=== PATIENT | male | born 1940 | race Caucasian/White ===

== ENCOUNTER 2016-05-12 14:53 | Outpatient (RCR) | payer MEDICARE ==
[2011-06-06 11:07] VITALS: BP 130/66
[~2016-05-12 14:53] MED LIST: ADVAIR 250/28 DISKU1 IH; GABAPENTIN300 MG PO; LISINOPRIL2.5 MG PO; NITROGLYCERIN0.4 MG SL; PLAVIX 75MG TAB75 MG PO; SIMVASTATIN40 MG PO; ST. JOSEPH81 M2 PO; TOPROL XL 25MG25 MG PO
== END 2016-05-19 09:11 | disposition home or self-care (01) ==
LOC: PT 14:53
DX: R53.1 Weakness (principal); R26.2 Difficulty in walking, not elsewhere classified

== ENCOUNTER → 2017-10-02 | Outpatient (CLI) | payer MEDICARE ==
[2011-06-06 11:07] VITALS: BP 130/66
[2017-10-02 10:25] LABS: BUN/CREATININE RATIO 16.9 (6.0-26.0); CALCIUM 8.6 mg/dL (8.4-10.2); POTASSIUM 3.9 mmol/L (3.6-5.0); TOTAL BILIRUBIN 0.5 mg/dL (0.2-1.3); TOTAL PROTEIN 7.5 g/dL (6.3-8.2)
== END ==
LOC: LAB 09:18
PROVIDERS: Family Medicine
DX: R94.4 Abnormal results of kidney function studies (principal)

== ENCOUNTER → 2018-01-29 | Outpatient (RCR) | payer MEDICARE ==
[2011-06-06 11:07] VITALS: BP 130/66
== END | disposition home or self-care (01) ==
LOC: PT
DX: R29.898 Other symptoms and signs involving the musculoskeletal system (principal)
CPT/HCPCS: G8978-GP; G8979-GP

== ENCOUNTER → 2018-04-23 | Outpatient (CLI) | payer MEDICARE ==
[2011-06-06 11:07] VITALS: BP 130/66
[2018-04-23 10:28] LABS: EOS # 0.2 (0.04-0.40); EOS % 2.3 % (0.0-4.0); HEMATOCRIT 43.6 % (42.0-52.0); HEMOGLOBIN 14.4 g/dL (13.5-18.0); LYMPH# 2.1 (1.50-4.00); MEAN CELL VOLUME 93 fl (78-100); MEAN CORPUSCULAR HEMOGLOBIN 31 pg (27-31); MEAN CORPUSCULAR HGB CONC 33 g/dL (33-37); MEAN PLATELET VOLUME 10.8 fl (7.4-10.4); MONO # 0.4 (0.20-0.80); NEU # 3.8 (1.40-6.50); PLATELET COUNT 198 K/mm3 (130-400); RED BLOOD COUNT 4.67 M/mm3 (4.20-5.60); RED CELL DISTRIBUTION WIDTH 12.8 % (11.5-14.5); WHITE BLOOD COUNT 6.5 K/mm3 (4.8-10.8)
[2018-04-23 10:39] LABS: ALBUMIN 4.2 g/dL (3.5-5.0); CALCIUM 9.4 mg/dL (8.4-10.2); POTASSIUM 4.2 mmol/L (3.6-5.0); TOTAL BILIRUBIN 0.7 mg/dL (0.2-1.3); TOTAL PROTEIN 6.9 g/dL (6.3-8.2)
== END ==
LOC: LAB 09:52
PROVIDERS: Family Medicine
DX: D64.9 Anemia, unspecified (principal); E78.5 Hyperlipidemia, unspecified; R73.9 Hyperglycemia, unspecified; Z79.899 Other long term (current) drug therapy

== ENCOUNTER 2018-04-29 15:00 | Outpatient (RCR) | payer MEDICARE ==
[2011-06-06 11:07] VITALS: BP 130/66
== END 2018-05-01 | disposition home or self-care (01) ==
LOC: PT
DX: R29.898 Other symptoms and signs involving the musculoskeletal system (principal)
CPT/HCPCS: G8978-GP; G8979-GP

== ENCOUNTER 2018-06-25 12:00 | Inpatient (IN) | payer MEDICARE ==
[~2018-06-25] VITALS: Ht 167.6 cm; Wt 99.0 kg
[~2018-06-25 12:00] MED LIST changes: +LOPRESSOR 225 MG/TAB PO; +ST. JOSEPH ASPI81 M1 PO; -ST. JOSEPH81 M2 PO; -TOPROL XL 25MG25 MG PO
[2018-06-25 13:30] VITALS: BP 149/75
[2018-06-25 13:31] VITALS: BP 149/75
[2018-06-25] MEDS ORDERED: ONE-DAILY MULT1 EAC1 PO (15:20)
[2018-06-25] MEDS ORDERED: NAMENDA XR28 MG PO (15:23)
[2018-06-25] MEDS ORDERED: SINEMET 25-1001 EACH PO (15:23)
[2018-06-25] MEDS ORDERED: ARICEPT23 MG PO (15:24)
[2018-06-25] MEDS ORDERED: PRILOSEC 20MG20 MG PO (15:24)
[2018-06-25] MEDS ORDERED: PRAVASTATIN SOD10 MG PO (15:25)
[2018-06-25 17:29] VITALS: BP 161/85
[2018-06-25 18:24] VITALS: BP 175/84
[2018-06-25 23:00] VITALS: BP 126/73
[2018-06-26] VITALS (7 sets, daily range): BP systolic 135–155; BP diastolic 71–83
[2018-06-26 06:40] LABS: EOS # 0.1 (0.04-0.40); EOS % 0.8 % (0.0-4.0); HEMATOCRIT 35.2 % (42.0-52.0); HEMOGLOBIN 11.8 g/dL (13.5-18.0); LYMPH# 1.7 (1.50-4.00); MEAN CELL VOLUME 92 fl (78-100); MEAN CORPUSCULAR HEMOGLOBIN 31 pg (27-31); MEAN CORPUSCULAR HGB CONC 34 g/dL (33-37); MEAN PLATELET VOLUME 10.2 fl (7.4-10.4); MONO # 1.2 (0.20-0.80); NEU # 7.9 (1.40-6.50); PLATELET COUNT 156 K/mm3 (130-400); RED BLOOD COUNT 3.83 M/mm3 (4.20-5.60); RED CELL DISTRIBUTION WIDTH 12.7 % (11.5-14.5); WHITE BLOOD COUNT 10.9 K/mm3 (4.8-10.8)
[2018-06-26 06:58] LABS: ALBUMIN 3.3 g/dL (3.5-5.0); CALCIUM 8.2 mg/dL (8.4-10.2); POTASSIUM 3.9 mmol/L (3.6-5.0); TOTAL PROTEIN 6.3 g/dL (6.3-8.2)
[2018-06-26 07:03] LABS: PROTHROMBIN TIME 9.8 SECONDS (9.0-12.0)
[2018-06-27 02:32] VITALS: BP 144/77
[2018-06-27 06:17] LABS: EOS # 0.2 (0.04-0.40); HEMATOCRIT 33.6 % (42.0-52.0); HEMOGLOBIN 11.2 g/dL (13.5-18.0); LYMPH# 1.7 (1.50-4.00); MEAN CELL VOLUME 93 fl (78-100); MEAN CORPUSCULAR HEMOGLOBIN 31 pg (27-31); MEAN CORPUSCULAR HGB CONC 33 g/dL (33-37); MONO # 0.9 (0.20-0.80); NEU # 5.4 (1.40-6.50); PLATELET COUNT 161 K/mm3 (130-400); RED BLOOD COUNT 3.62 M/mm3 (4.20-5.60); RED CELL DISTRIBUTION WIDTH 12.6 % (11.5-14.5); WHITE BLOOD COUNT 8.2 K/mm3 (4.8-10.8)
[2018-06-27 06:19] VITALS: BP 124/56
[2018-06-27 06:42] LABS: CALCIUM 7.8 mg/dL (8.4-10.2); POTASSIUM 3.7 mmol/L (3.6-5.0)
[2018-06-27 11:05] VITALS: BP 164/82
[2018-06-27 15:19] VITALS: BP 98/54
[2018-06-27 19:22] VITALS: BP 137/79
[2018-06-27 23:10] VITALS: BP 114/71
[2018-06-28 03:18] VITALS: BP 146/79
[2018-06-28 06:27] VITALS: BP 123/81
[2018-06-28 11:03] VITALS: BP 132/70
== END 2018-06-28 10:39 | disposition swing bed (61) | DRG 65 ==
LOC: MED/SURG 12:00
PROVIDERS: Physician Assistant; ADMIT Nurse Practitioner Primary Care
DX: I63.9 Cerebral infarction, unspecified (principal); G91.2 (Idiopathic) normal pressure hydrocephalus; Z66 Do not resuscitate; E86.0 Dehydration; W18.30XA Fall on same level, unspecified, initial encounter; I25.10 Atherosclerotic heart disease of native coronary artery without angina pectoris; Z95.5 Presence of coronary angioplasty implant and graft; G31.83 Neurocognitive disorder with Lewy bodies; F02.80 Dementia in other diseases classified elsewhere, unspecified severity, without behavioral disturbance, psychotic disturbance, mood disturbance, and anxiety; E78.5 Hyperlipidemia, unspecified; K21.9 Gastro-esophageal reflux disease without esophagitis; Z91.81 History of falling; K59.00 Constipation, unspecified; I65.23 Occlusion and stenosis of bilateral carotid arteries
CPT/HCPCS: C9113; J1650; J7030; Q9967

== ENCOUNTER → 2018-08-05 | Outpatient (CLI) | payer MEDICARE ==
[2018-07-11 06:27] VITALS: BP 146/79
[~2018-08-05] MED LIST changes: +ARICEPT23 MG PO; +NAMENDA XR28 MG PO; +ONE-DAILY MULT1 EAC1 PO; +PRAVASTATIN SOD10 MG PO; +PRILOSEC 20MG20 MG PO; +SINEMET 25-1001 EACH PO; +SYNTHROID0.075 MG PO
[2018-08-05 18:05] LABS: EOS # 0.2 (0.04-0.40); EOS % 2.7 % (0.0-4.0); HEMATOCRIT 46.1 % (42.0-52.0); HEMOGLOBIN 15.3 g/dL (13.5-18.0); LYMPH# 1.5 (1.50-4.00); MEAN CELL VOLUME 90 fl (78-100); MEAN CORPUSCULAR HEMOGLOBIN 30 pg (27-31); MEAN CORPUSCULAR HGB CONC 33 g/dL (33-37); MEAN PLATELET VOLUME 10.7 fl (7.4-10.4); MONO # 0.6 (0.20-0.80); NEU # 4.7 (1.40-6.50); PLATELET COUNT 238 K/mm3 (130-400); RED CELL DISTRIBUTION WIDTH 13.3 % (11.5-14.5)
[2018-08-05 18:21] LABS: ALBUMIN 4.3 g/dL (3.5-5.0); CALCIUM 9.4 mg/dL (8.4-10.2); PARTIAL THROMBOPLASTIN TIME 20.6 SECONDS (21.0-32.0); PROTHROMBIN TIME 9.5 SECONDS (9.0-12.0); TOTAL BILIRUBIN 0.6 mg/dL (0.2-1.3); TOTAL PROTEIN 7.4 g/dL (6.3-8.2)
== END ==
LOC: LAB 16:48
PROVIDERS: Nurse Practitioner
DX: E03.9 Hypothyroidism, unspecified (principal); M79.89 Other specified soft tissue disorders

== ENCOUNTER 2018-08-31 18:53 | Observation (INO) | payer MEDICARE ==
[~2018-08-31] VITALS: Ht 167.6 cm; Wt 92.7 kg
[2018-08-31] MEDS ORDERED: XARELTO20 MG PO (19:03)
[2018-08-31 19:31] LABS: EOS # 0.1 (0.04-0.40); EOS % 0.7 % (0.0-4.0); HEMATOCRIT 37.1 % (42.0-52.0); HEMOGLOBIN 12.3 g/dL (13.5-18.0); LYMPH# 1.4 (1.50-4.00); MEAN CELL VOLUME 93 fl (78-100); MEAN CORPUSCULAR HEMOGLOBIN 31 pg (27-31); MEAN CORPUSCULAR HGB CONC 33 g/dL (33-37); MEAN PLATELET VOLUME 10.6 fl (7.4-10.4); NEU # 7.3 (1.40-6.50); PLATELET COUNT 164 K/mm3 (130-400); RED BLOOD COUNT 3.98 M/mm3 (4.20-5.60); RED CELL DISTRIBUTION WIDTH 13.3 % (11.5-14.5); WHITE BLOOD COUNT 9.8 K/mm3 (4.8-10.8)
[2018-08-31 19:48] LABS: ALBUMIN 3.4 g/dL (3.4-4.8); CALCIUM 9.1 mg/dL (8.8-10.0); POTASSIUM 4.1 mmol/L (3.5-5.1); TOTAL BILIRUBIN 1.1 mg/dL (0.2-1.2); TOTAL PROTEIN 6.3 g/dL (6.2-8.1)
[2018-08-31 22:43] VITALS: BP 125/62
[2018-08-31 23:53] VITALS: BP 125/62
[2018-09-01] MEDS ORDERED: NAMENDA10 MG PO (02:08)
[2018-09-01 03:09] VITALS: BP 126/72
[2018-09-01 06:38] VITALS: BP 135/69
[2018-09-01 11:11] VITALS: BP 110/68
[2018-09-01 14:42] VITALS: BP 127/72
== END 2018-09-01 15:14 | disposition home or self-care (01) ==
LOC: ED 18:53 → MED/SURG 21:42
PROVIDERS: ADMIT Family Medicine
DX: R53.81 Other malaise (principal); G31.83 Neurocognitive disorder with Lewy bodies; F02.80 Dementia in other diseases classified elsewhere, unspecified severity, without behavioral disturbance, psychotic disturbance, mood disturbance, and anxiety; Z86.718 Personal history of other venous thrombosis and embolism; Z79.01 Long term (current) use of anticoagulants
CPT/HCPCS: G0378

== ENCOUNTER → 2018-10-14 | Outpatient (CLI) | payer MEDICARE ==
[~2018-10-14] MED LIST changes: +NAMENDA10 MG PO; +XARELTO20 MG PO
[2018-10-14 09:56] LABS: BASO # 0.2 (0.02-0.10); EOS # 0.2 (0.04-0.40); HEMATOCRIT 44.7 % (42.0-52.0); HEMOGLOBIN 13.8 g/dL (13.5-18.0); MEAN CELL VOLUME 97 fl (78-100); MEAN CORPUSCULAR HEMOGLOBIN 30 pg (27-31); MEAN CORPUSCULAR HGB CONC 31 g/dL (33-37); MONO # 0.7 (0.20-0.80); NEU # 4.9 (1.40-6.50); PLATELET COUNT 193 K/mm3 (130-400); RED BLOOD COUNT 4.61 M/mm3 (4.20-5.60); RED CELL DISTRIBUTION WIDTH 13.5 % (11.5-14.5)
[2018-10-14 10:10] LABS: ALBUMIN 3.7 g/dL (3.4-4.8); POTASSIUM 4.2 mmol/L (3.5-5.1)
[2018-10-14 10:12] LABS: CALCIUM 9.1 mg/dL (8.3-10.5)
[2018-10-14 10:13] LABS: TOTAL PROTEIN 6.9 g/dL (6.2-8.1)
[2018-10-14 10:15] LABS: TOTAL BILIRUBIN 0.4 mg/dL (0.2-1.2)
== END ==
LOC: LAB 09:41
PROVIDERS: Internal Medicine
DX: M25.474 Effusion, right foot (principal); E03.9 Hypothyroidism, unspecified

== ENCOUNTER → 2018-10-28 | Outpatient (CLI) | payer MEDICARE | LOC: LAB 06:25 | DX: R73.03 Prediabetes (principal) ==

== ENCOUNTER → 2018-11-28 | Outpatient (CLI) | payer MEDICARE | LOC: LAB 07:21 | DX: E03.9 Hypothyroidism, unspecified (principal) ==

== ENCOUNTER → 2019-03-06 | Outpatient (CLI) | payer MEDICARE ==
[2019-03-06 09:05] LABS: EOS # 0.2 (0.04-0.40); EOS % 2.6 % (0.0-4.0); HEMATOCRIT 41.5 % (42.0-52.0); HEMOGLOBIN 13.7 g/dL (13.5-18.0); MEAN CELL VOLUME 92 fl (78-100); MEAN CORPUSCULAR HEMOGLOBIN 30 pg (27-31); MEAN CORPUSCULAR HGB CONC 33 g/dL (33-37); MEAN PLATELET VOLUME 10.5 fl (7.4-10.4); MONO # 0.6 (0.20-0.80); NEU # 4.4 (1.40-6.50); PLATELET COUNT 209 K/mm3 (130-400); RED BLOOD COUNT 4.51 M/mm3 (4.20-5.60); RED CELL DISTRIBUTION WIDTH 13.3 % (11.5-14.5); WHITE BLOOD COUNT 7.3 K/mm3 (4.8-10.8)
[2019-03-06 09:08] LABS: ALBUMIN 3.7 g/dL (3.4-4.8); POTASSIUM 4.3 mmol/L (3.5-5.1); SODIUM 141 mmol/L (136-145)
[2019-03-06 09:09] LABS: CALCIUM 9.1 mg/dL (8.3-10.5)
[2019-03-06 09:10] LABS: GLUCOSE 113 mg/dL (75-110); TOTAL PROTEIN 6.7 g/dL (6.2-8.1)
[2019-03-06 09:11] LABS: CARBON DIOXIDE 24 mmol/L (23-31)
[2019-03-06 09:12] LABS: TOTAL BILIRUBIN 0.5 mg/dL (0.2-1.2)
[2019-03-06 09:16] LABS: AST-SGOT 12 U/L (5-34)
[2019-03-06 09:17] LABS: ALT/SGPT < 6 U/L (0-55)
== END ==
LOC: LAB 08:50
PROVIDERS: Internal Medicine
DX: M25.474 Effusion, right foot (principal); E03.9 Hypothyroidism, unspecified; R73.03 Prediabetes

== ENCOUNTER 2019-04-06 17:41 | Observation (INO) | payer MEDICARE ==
[~2019-04-06] VITALS: Ht 167.6 cm; Wt 95.7 kg
[2019-04-06] MEDS ORDERED: COLACE100 M1 PO (18:09)
[2019-04-06] MEDS ORDERED: ASPIR LOW81 MG PO (18:09)
[2019-04-06] MEDS ORDERED: LEVOTHYROXINE125 MCG PO (18:09)
[2019-04-06] MEDS ORDERED: MEMANTINE HCL E28 MG PO (18:10)
[2019-04-06 18:34] LABS: EOS # 0.1 (0.04-0.40); EOS % 1.3 % (0.0-4.0); HEMATOCRIT 56.3 % (42.0-52.0); HEMOGLOBIN 18.5 g/dL (13.5-18.0); MEAN CELL VOLUME 92 fl (78-100); MEAN CORPUSCULAR HEMOGLOBIN 30 pg (27-31); MEAN CORPUSCULAR HGB CONC 33 g/dL (33-37); MEAN PLATELET VOLUME 9.9 fl (7.4-10.4); MONO # 0.5 (0.20-0.80); NEU # 3.2 (1.40-6.50); PLATELET COUNT 100 K/mm3 (130-400); RED BLOOD COUNT 6.15 M/mm3 (4.20-5.60); RED CELL DISTRIBUTION WIDTH 13.6 % (11.5-14.5); WHITE BLOOD COUNT 4.5 K/mm3 (4.8-10.8)
[2019-04-06 18:35] LABS: LYMPH# 0.7 (1.50-4.00)
[2019-04-06 18:54] LABS: ALBUMIN 3.7 g/dL (3.4-4.8); CALCIUM 8.7 mg/dL (8.3-10.5); POTASSIUM 4.2 mmol/L (3.5-5.1)
[2019-04-06 18:56] LABS: TOTAL BILIRUBIN 0.5 mg/dL (0.2-1.2); TOTAL PROTEIN 6.8 g/dL (6.2-8.1)
[2019-04-06 19:07] LABS: URINE APPEARANCE CLEAR; URINE BILIRUBIN NEGATIVE (NEGATIVE); URINE BLOOD TRACE (NEGATIVE); URINE COLOR YELLOW; URINE GLUCOSE NEGATIVE (NEGATIVE); URINE KETONE NEGATIVE (NEGATIVE); URINE LEUKOCYTE ESTERASE NEGATIVE (NEGATIVE); URINE NITRATE NEGATIVE (NEGATIVE); URINE PROTEIN(semi-quant) TRACE mg/dL (NEGATIVE); URINE UROBILINOGEN NORMAL (NORMAL)
[2019-04-06 21:37] VITALS: BP 189/73
[2019-04-06 21:49] VITALS: BP 189/73
[2019-04-07 01:37] VITALS: BP 130/77
[2019-04-07 05:29] VITALS: BP 148/71
[2019-04-07 06:36] LABS: HEMATOCRIT 41.3 % (42.0-52.0); HEMOGLOBIN 13.5 g/dL (13.5-18.0); MEAN CELL VOLUME 92 fl (78-100); MEAN CORPUSCULAR HEMOGLOBIN 30 pg (27-31); MEAN CORPUSCULAR HGB CONC 33 g/dL (33-37); MEAN PLATELET VOLUME 10.1 fl (7.4-10.4); PLATELET COUNT 166 K/mm3 (130-400); RED BLOOD COUNT 4.48 M/mm3 (4.20-5.60); RED CELL DISTRIBUTION WIDTH 12.9 % (11.5-14.5); WHITE BLOOD COUNT 7.4 K/mm3 (4.8-10.8)
[2019-04-07 06:55] LABS: BAND 10 % (0-10); LYMPHOCYTE 9 % (20-51); MONOCYTE 3 % (3-10); NEUTROPHILS 78 % (42-75)
[2019-04-07 07:05] LABS: POTASSIUM 4.3 mmol/L (3.5-5.1)
[2019-04-07 07:06] LABS: CALCIUM 8.9 mg/dL (8.3-10.5)
[2019-04-07 09:47] VITALS: BP 137/74
[2019-04-07 14:03] VITALS: BP 144/75
[2019-04-07 17:04] VITALS: BP 138/76
[2019-04-07 21:58] VITALS: BP 122/68
[2019-04-08 02:05] VITALS: BP 145/70
[2019-04-08 05:57] VITALS: BP 157/74
[2019-04-08 10:42] VITALS: BP 124/74
[2019-04-08] MEDS ORDERED: IPRATROPIUM BROM3 M1 IH (14:23)
[2019-04-08] MEDS ORDERED: CEFDINIR300 MG PO (14:23)
[2019-04-08] MEDS ORDERED: MUCUS RELIEF400 M1 PO (14:23)
[2019-04-08] MEDS ORDERED: PREDNISONE10 MG PO (14:25)
[2019-04-08 15:07] VITALS: BP 159/74
[2019-04-08 15:22] VITALS: BP 159/74
== END 2019-04-08 15:54 | disposition home or self-care (01) ==
LOC: ED 17:41 → MED/SURG 20:29
PROVIDERS: ADMIT Nurse Practitioner Primary Care
DX: J20.9 Acute bronchitis, unspecified (principal); R53.1 Weakness; E86.0 Dehydration; R74.0 Nonspecific elevation of levels of transaminase and lactic acid dehydrogenase [LDH]; Z79.899 Other long term (current) drug therapy; Z79.82 Long term (current) use of aspirin
CPT/HCPCS: A4216; G0378; J0696; J2930; J7030

== ENCOUNTER → 2019-04-21 | Outpatient (CLI) | payer MEDICARE ==
[2019-04-08 15:22] VITALS: BP 159/74
[~2019-04-21] MED LIST changes: +ASPIR LOW81 MG PO; +CEFDINIR300 MG PO; +COLACE100 M1 PO; +IPRATROPIUM BROM3 M1 IH; +LEVOTHYROXINE125 MCG PO; +MEMANTINE HCL E28 MG PO; +MUCUS RELIEF400 M1 PO; +PREDNISONE10 MG PO
== END ==
LOC: LAB 08:11
DX: E03.8 Other specified hypothyroidism (principal)

== ENCOUNTER → 2019-04-28 | Outpatient (CLI) | payer MEDICARE ==
[2019-04-08 15:22] VITALS: BP 159/74
== END ==
LOC: LAB 07:35
DX: E03.9 Hypothyroidism, unspecified (principal)

== ENCOUNTER 2019-05-11 13:00 | Emergency (ER) | payer MEDICARE ==
[~2019-05-11] VITALS: Ht 167.6 cm; Wt 96.6 kg
[2019-05-11 13:56] LABS: EOS # 0.1 (0.04-0.40); EOS % 1.2 % (0.0-4.0); HEMATOCRIT 42.7 % (42.0-52.0); HEMOGLOBIN 13.7 g/dL (13.5-18.0); MEAN CELL VOLUME 95 fl (78-100); MEAN CORPUSCULAR HEMOGLOBIN 30 pg (27-31); MEAN CORPUSCULAR HGB CONC 32 g/dL (33-37); MEAN PLATELET VOLUME 10.4 fl (7.4-10.4); NEU # 5.1 (1.40-6.50); PLATELET COUNT 185 K/mm3 (130-400); RED BLOOD COUNT 4.51 M/mm3 (4.20-5.60); RED CELL DISTRIBUTION WIDTH 13.6 % (11.5-14.5); WHITE BLOOD COUNT 8.2 K/mm3 (4.8-10.8)
[2019-05-11 14:05] LABS: ALBUMIN 3.7 g/dL (3.4-4.8); POTASSIUM 4.2 mmol/L (3.5-5.1)
[2019-05-11 14:06] LABS: CALCIUM 9.1 mg/dL (8.3-10.5)
[2019-05-11 14:08] LABS: TOTAL PROTEIN 6.6 g/dL (6.2-8.1)
[2019-05-11 14:09] LABS: TOTAL BILIRUBIN 0.3 mg/dL (0.2-1.2)
[2019-05-11 19:00] VITALS: BP 152/82
[2019-05-11] MEDS ORDERED: DULCOLAX S10 MG/SUPP RC (20:49)
[2019-05-11] MEDS ORDERED: FLEET ENEM1 BOT/133 RC (20:50)
[2019-05-11] MEDS ORDERED: GOOD NEIGH1200 MG/15 PO (20:50)
== END 2019-05-11 19:00 | disposition home or self-care (01) ==
LOC: ED 13:00
PROVIDERS: Family Medicine
DX: R53.81 Other malaise (principal); F03.90 Unspecified dementia, unspecified severity, without behavioral disturbance, psychotic disturbance, mood disturbance, and anxiety; I10 Essential (primary) hypertension; Z79.82 Long term (current) use of aspirin; Z86.718 Personal history of other venous thrombosis and embolism; Z87.891 Personal history of nicotine dependence; Z95.5 Presence of coronary angioplasty implant and graft
CPT/HCPCS: A4340; J7030

== ENCOUNTER → 2019-05-16 | Outpatient (CLI) | payer MEDICARE ==
[2019-05-11 19:00] VITALS: BP 152/82
[~2019-05-16] MED LIST changes: +DULCOLAX S10 MG/SUPP RC; +FLEET ENEM1 BOT/133 RC; +GOOD NEIGH1200 MG/15 PO
[2019-05-16 14:08] LABS: EOS # 0.2 (0.04-0.40); HEMATOCRIT 43.2 % (42.0-52.0); HEMOGLOBIN 14.1 g/dL (13.5-18.0); LYMPH# 1.8 (1.50-4.00); MEAN CELL VOLUME 93 fl (78-100); MEAN CORPUSCULAR HEMOGLOBIN 30 pg (27-31); MEAN CORPUSCULAR HGB CONC 33 g/dL (33-37); MEAN PLATELET VOLUME 10.1 fl (7.4-10.4); MONO # 0.7 (0.20-0.80); NEU # 4.6 (1.40-6.50); PLATELET COUNT 216 K/mm3 (130-400); RED BLOOD COUNT 4.66 M/mm3 (4.20-5.60); RED CELL DISTRIBUTION WIDTH 13.5 % (11.5-14.5); WHITE BLOOD COUNT 7.3 K/mm3 (4.8-10.8)
[2019-05-16 14:16] LABS: ALBUMIN 3.6 g/dL (3.4-4.8); POTASSIUM 3.9 mmol/L (3.5-5.1)
[2019-05-16 14:17] LABS: CALCIUM 8.9 mg/dL (8.3-10.5)
[2019-05-16 14:18] LABS: TOTAL PROTEIN 7.2 g/dL (6.2-8.1)
[2019-05-16 14:20] LABS: TOTAL BILIRUBIN 0.4 mg/dL (0.2-1.2)
== END ==
LOC: RAD 13:52
PROVIDERS: Internal Medicine
DX: G91.2 (Idiopathic) normal pressure hydrocephalus (principal); I82.411 Acute embolism and thrombosis of right femoral vein; I63.9 Cerebral infarction, unspecified

== ENCOUNTER → 2019-10-30 | Outpatient (CLI) | payer MEDICARE ==
[2019-10-30 11:39] LABS: EOS # 0.2 (0.04-0.40); EOS % 2.4 % (0.0-4.0); HEMATOCRIT 42.8 % (42.0-52.0); LYMPH# 1.6 (1.50-4.00); MEAN CELL VOLUME 90 fl (78-100); MEAN CORPUSCULAR HEMOGLOBIN 30 pg (27-31); MEAN CORPUSCULAR HGB CONC 33 g/dL (33-37); MEAN PLATELET VOLUME 10.5 fl (7.4-10.4); MONO # 0.5 (0.20-0.80); NEU # 4.4 (1.40-6.50); PLATELET COUNT 178 K/mm3 (130-400); RED BLOOD COUNT 4.74 M/mm3 (4.20-5.60); RED CELL DISTRIBUTION WIDTH 13.4 % (11.5-14.5); WHITE BLOOD COUNT 6.7 K/mm3 (4.8-10.8)
[2019-10-31 10:56] LABS: ALBUMIN 3.9 g/dL (3.4-4.8); POTASSIUM 3.8 mmol/L (3.5-5.1); SODIUM 142 mmol/L (136-145)
[2019-10-31 10:58] LABS: CALCIUM 8.9 mg/dL (8.3-10.5)
[2019-10-31 10:59] LABS: GLUCOSE 160 mg/dL (75-110)
[2019-10-31 11:00] LABS: CARBON DIOXIDE 26 mmol/L (23-31)
[2019-10-31 11:01] LABS: TOTAL BILIRUBIN 0.5 mg/dL (0.2-1.2)
[2019-10-31 11:04] LABS: AST-SGOT 12 U/L (5-34)
[2019-10-31 11:27] LABS: ALT/SGPT < 6 U/L (0-55)
== END ==
LOC: LAB 11:05
PROVIDERS: Internal Medicine
DX: M25.474 Effusion, right foot (principal); E03.9 Hypothyroidism, unspecified; R20.2 Paresthesia of skin; E78.2 Mixed hyperlipidemia

== ENCOUNTER → 2020-02-04 | Outpatient (CLI) | payer MEDICARE | LOC: LAB 13:12 | DX: E03.9 Hypothyroidism, unspecified (principal); K90.9 Intestinal malabsorption, unspecified ==

== ENCOUNTER → 2020-06-14 | Outpatient (CLI) | payer MEDICARE ==
[2020-06-14 11:43] LABS: EOS # 0.2 (0.04-0.40); EOS % 2.1 % (0.0-4.0); HEMATOCRIT 41.7 % (42.0-52.0); HEMOGLOBIN 13.3 g/dL (13.5-18.0); LYMPH# 1.9 (1.50-4.00); MEAN CELL VOLUME 94 fl (78-100); MEAN CORPUSCULAR HEMOGLOBIN 30 pg (27-31); MEAN CORPUSCULAR HGB CONC 32 g/dL (33-37); MEAN PLATELET VOLUME 10.9 fl (7.4-10.4); MONO # 0.9 (0.20-0.80); NEU # 5.5 (1.40-6.50); PLATELET COUNT 160 K/mm3 (130-400); RED BLOOD COUNT 4.42 M/mm3 (4.20-5.60); RED CELL DISTRIBUTION WIDTH 12.9 % (11.5-14.5); WHITE BLOOD COUNT 8.5 K/mm3 (4.8-10.8)
[2020-06-14 11:47] LABS: ALBUMIN 3.3 g/dL (3.4-4.8); POTASSIUM 3.9 mmol/L (3.5-5.1); SODIUM 143 mmol/L (136-145)
[2020-06-14 11:48] LABS: CALCIUM 8.6 mg/dL (8.3-10.5)
[2020-06-14 11:50] LABS: GLUCOSE 134 mg/dL (75-110); TOTAL PROTEIN 6.2 g/dL (6.2-8.1)
[2020-06-14 11:51] LABS: CARBON DIOXIDE 28 mmol/L (23-31); TOTAL BILIRUBIN 0.5 mg/dL (0.2-1.2)
[2020-06-14 11:55] LABS: AST-SGOT 10 U/L (5-34)
[2020-06-14 12:10] LABS: ALT/SGPT < 6 U/L (0-55)
== END ==
LOC: LAB 10:41
PROVIDERS: Internal Medicine
DX: Z12.5 Encounter for screening for malignant neoplasm of prostate (principal); E78.2 Mixed hyperlipidemia; E03.8 Other specified hypothyroidism

== ENCOUNTER → 2020-10-19 | Outpatient (CLI) | payer MEDICARE ==
[2020-10-19 09:11] LABS: URINE APPEARANCE CLEAR; URINE BILIRUBIN NEGATIVE (NEGATIVE); URINE BLOOD NEGATIVE (NEGATIVE); URINE COLOR YELLOW; URINE GLUCOSE NEGATIVE (NEGATIVE); URINE KETONE NEGATIVE (NEGATIVE); URINE NITRATE NEGATIVE (NEGATIVE); URINE PROTEIN(semi-quant) NEGATIVE (NEGATIVE); URINE UROBILINOGEN NORMAL (NORMAL)
[2020-10-19 09:12] LABS: URINE LEUKOCYTE ESTERASE NEGATIVE (NEGATIVE); URINE WBC 0-1 /hpf (0-3)
== END ==
LOC: LAB 07:18
PROVIDERS: Internal Medicine
DX: N39.42 Incontinence without sensory awareness (principal)

== ENCOUNTER → 2021-01-18 | Outpatient (CLI) | payer MEDICARE ==
[2021-01-18 11:40] LABS: ALBUMIN 3.4 g/dL (3.4-4.8); SODIUM 142 mmol/L (136-145)
[2021-01-18 11:41] LABS: CALCIUM 9.4 mg/dL (8.3-10.5)
[2021-01-18 11:42] LABS: BASO # 0.02 K/mm3 (0.02-0.10); EOS # 0.28 K/mm3 (0.04-0.40); EOS % 4.3 % (0.0-4.0); GLUCOSE 155 mg/dL (75-110); HEMATOCRIT 41.3 % (42.0-52.0); HEMOGLOBIN 13.3 g/dL (13.5-18.0); LYMPH# 1.83 K/mm3 (1.50-4.00); MEAN CELL VOLUME 93 fl (78-100); MEAN CORPUSCULAR HEMOGLOBIN 30 pg (27-31); MEAN CORPUSCULAR HGB CONC 32 g/dL (33-37); MEAN PLATELET VOLUME 10.1 fl (7.4-10.4); PLATELET COUNT 214 K/mm3 (130-400); RED BLOOD COUNT 4.42 M/mm3 (4.20-5.60); RED CELL DISTRIBUTION WIDTH 13.3 % (11.5-14.5); TOTAL PROTEIN 6.8 g/dL (6.2-8.1); WHITE BLOOD COUNT 6.6 K/mm3 (4.8-10.8)
[2021-01-18 11:43] LABS: CARBON DIOXIDE 22 mmol/L (23-31)
[2021-01-18 11:44] LABS: TOTAL BILIRUBIN 0.5 mg/dL (0.2-1.2)
[2021-01-18 11:48] LABS: AST-SGOT 13 U/L (5-34)
[2021-01-18 12:00] LABS: ALT/SGPT < 6 U/L (0-55)
== END ==
LOC: LAB 09:39
PROVIDERS: Internal Medicine
DX: G91.2 (Idiopathic) normal pressure hydrocephalus (principal); E03.8 Other specified hypothyroidism

== ENCOUNTER → 2021-07-19 | Outpatient (CLI) | payer MEDICARE ==
[2021-07-19 16:28] LABS: BASO # 0.03 K/mm3 (0.02-0.10); EOS # 0.18 K/mm3 (0.04-0.40); EOS % 2.3 % (0.0-4.0); HEMATOCRIT 44.4 % (42.0-52.0); HEMOGLOBIN 14.3 g/dL (13.5-18.0); LYMPH# 2.46 K/mm3 (1.50-4.00); MEAN CELL VOLUME 95 fl (78-100); MEAN CORPUSCULAR HEMOGLOBIN 31 pg (27-31); MEAN CORPUSCULAR HGB CONC 32 g/dL (33-37); MEAN PLATELET VOLUME 10.1 fl (7.4-10.4); MONO # 0.54 K/mm3 (0.20-0.80); NEU # 4.75 K/mm3 (1.40-6.50); PLATELET COUNT 178 K/mm3 (130-400); RED BLOOD COUNT 4.69 M/mm3 (4.20-5.60); RED CELL DISTRIBUTION WIDTH 12.6 % (11.5-14.5)
[2021-07-19 16:40] LABS: POTASSIUM 4.3 mmol/L (3.5-5.1); SODIUM 147 mmol/L (136-145)
[2021-07-19 16:41] LABS: ALBUMIN 3.8 g/dL (3.4-4.8)
[2021-07-19 16:43] LABS: GLUCOSE 123 mg/dL (75-110); TOTAL PROTEIN 6.7 g/dL (6.2-8.1)
[2021-07-19 16:44] LABS: CARBON DIOXIDE 27 mmol/L (23-31)
[2021-07-19 16:45] LABS: TOTAL BILIRUBIN 0.4 mg/dL (0.2-1.2)
[2021-07-19 16:48] LABS: AST-SGOT 10 U/L (5-34)
[2021-07-19 17:18] LABS: ALT/SGPT < 6 U/L (0-55)
== END ==
LOC: LAB 15:53
PROVIDERS: Internal Medicine
DX: Z12.5 Encounter for screening for malignant neoplasm of prostate (principal); E78.2 Mixed hyperlipidemia; E03.8 Other specified hypothyroidism; G31.83 Neurocognitive disorder with Lewy bodies; G91.2 (Idiopathic) normal pressure hydrocephalus; K90.9 Intestinal malabsorption, unspecified

== ENCOUNTER → 2021-09-15 | Outpatient (CLI) | payer MEDICARE ==
[2021-09-15 13:40] LABS: BASO # 0.02 K/mm3 (0.02-0.10); EOS # 0.15 K/mm3 (0.04-0.40); EOS % 1.8 % (0.0-4.0); HEMATOCRIT 45.5 % (42.0-52.0); HEMOGLOBIN 14.9 g/dL (13.5-18.0); LYMPH# 2.19 K/mm3 (1.50-4.00); MEAN CELL VOLUME 93 fl (78-100); MEAN CORPUSCULAR HEMOGLOBIN 31 pg (27-31); MEAN CORPUSCULAR HGB CONC 33 g/dL (33-37); MEAN PLATELET VOLUME 9.8 fl (7.4-10.4); NEU # 5.36 K/mm3 (1.40-6.50); PLATELET COUNT 198 K/mm3 (130-400); RED BLOOD COUNT 4.87 M/mm3 (4.20-5.60); RED CELL DISTRIBUTION WIDTH 12.5 % (11.5-14.5); WHITE BLOOD COUNT 8.1 K/mm3 (4.8-10.8)
[2021-09-15 13:50] LABS: ALBUMIN 3.9 g/dL (3.4-4.8); POTASSIUM 4.2 mmol/L (3.5-5.1); SODIUM 146 mmol/L (136-145)
[2021-09-15 13:51] LABS: CALCIUM 9.5 mg/dL (8.3-10.5)
[2021-09-15 13:52] LABS: GLUCOSE 138 mg/dL (75-110); TOTAL PROTEIN 7.2 g/dL (6.2-8.1)
[2021-09-15 13:53] LABS: CARBON DIOXIDE 26 mmol/L (23-31)
[2021-09-15 13:54] LABS: TOTAL BILIRUBIN 0.4 mg/dL (0.2-1.2)
[2021-09-15 13:58] LABS: AST-SGOT 9 U/L (5-34)
[2021-09-15 14:00] LABS: ALT/SGPT < 6 U/L (0-55)
== END ==
LOC: LAB 13:29
PROVIDERS: Internal Medicine
DX: E78.2 Mixed hyperlipidemia (principal); E55.9 Vitamin D deficiency, unspecified; G20 Parkinson's disease; E03.9 Hypothyroidism, unspecified; G91.2 (Idiopathic) normal pressure hydrocephalus

== ENCOUNTER 2021-11-16 14:09 | Emergency (ER) | payer MEDICARE ==
[~2021-11-16] VITALS: Ht 182.9 cm; Wt 96.6 kg
[2021-11-16 14:58] LABS: BASO # 0.01 K/mm3 (0.02-0.10); EOS # 0.14 K/mm3 (0.04-0.40); EOS % 1.6 % (0.0-4.0); HEMATOCRIT 43.2 % (42.0-52.0); LYMPH# 2.19 K/mm3 (1.50-4.00); MEAN CELL VOLUME 94 fl (78-100); MEAN CORPUSCULAR HEMOGLOBIN 31 pg (27-31); MEAN CORPUSCULAR HGB CONC 32 g/dL (33-37); MEAN PLATELET VOLUME 9.8 fl (7.4-10.4); MONO # 0.58 K/mm3 (0.20-0.80); NEU # 5.93 K/mm3 (1.40-6.50); PLATELET COUNT 178 K/mm3 (130-400); RED BLOOD COUNT 4.58 M/mm3 (4.20-5.60); RED CELL DISTRIBUTION WIDTH 12.9 % (11.5-14.5); WHITE BLOOD COUNT 8.9 K/mm3 (4.8-10.8)
[2021-11-16 15:10] LABS: ALBUMIN 3.7 g/dL (3.4-4.8)
[2021-11-16 15:11] LABS: POTASSIUM 4.5 mmol/L (3.5-5.1); SODIUM 146 mmol/L (136-145)
[2021-11-16 15:12] LABS: CALCIUM 9.3 mg/dL (8.3-10.5)
[2021-11-16 15:13] LABS: GLUCOSE 147 mg/dL (75-110); TOTAL PROTEIN 6.9 g/dL (6.2-8.1)
[2021-11-16 15:14] LABS: CARBON DIOXIDE 27 mmol/L (23-31)
[2021-11-16 15:15] LABS: TOTAL BILIRUBIN 0.3 mg/dL (0.2-1.2)
[2021-11-16 15:18] LABS: AST-SGOT 9 U/L (5-34)
[2021-11-16 15:23] LABS: ALT/SGPT < 6 U/L (0-55)
[2021-11-16 16:42] VITALS: BP 148/62
== END 2021-11-16 16:55 | disposition home or self-care (01) ==
LOC: ED 14:09
PROVIDERS: Physician Assistant
DX: R09.89 Other specified symptoms and signs involving the circulatory and respiratory systems (principal)

== ENCOUNTER → 2022-05-03 | Outpatient (CLI) | payer MEDICARE ==
[~2022-05-03] MED LIST changes: +ALBUTEROL2.5 MG/3 M IH; +MIRALAX17 GM PO; +TYLENOL325 M1 PO
== END ==
LOC: LAB 11:30
DX: Z01.89 Encounter for other specified special examinations (principal)